=== PATIENT | male | born 1940 | race Caucasian/White ===

== ENCOUNTER 2020-01-04 05:44 | Observation (INO) | payer MEDICARE, OTHER ==
[2020-01-04 09:20] VITALS: TEMP 97.7
[2020-01-04] MEDS ORDERED: Ondansetron PF 4 MG/2 ML Vial IVP PRN (09:24)
[2020-01-04] MEDS ORDERED: Senokot S 8.6-50 MG TAB PO PRN (09:24)
[2020-01-04] MEDS ORDERED: Guaifenesin DM 100-10/5 ML UDCUP PO PRN (09:24)
[2020-01-04] MEDS ORDERED: Acetaminophen 325 MG TAB PO PRN (09:24)
[2020-01-04] MEDS ORDERED: Bisacodyl 10 MG SUPP PR PRN (09:24)
[2020-01-04] MEDS ORDERED: Calcium Carbonate 500 MG ChewTAB PO PRN (09:24)
[2020-01-04 09:34] VITALS: BMI 26.4
--- NOTE | 2020-01-04 12:09 | MRI ---
MRI BRAIN WITH AND WITHOUT CONTRAST: INDICATION: Exam is performed as followup to a CT scan of 01/03/2010. A hypointensity in the left frontal lobe wa s questioned on that study. FINDINGS: Mild cortical volume loss. Moderate chronic ischemic white matter change. No evidence of restricted diffusion. There is no evidence of left frontal lobe mass. The questioned lucency seen on recent CT is secondar y to volume averaging. There is no abnormal enhancement. Intracranial internal carotid arteries and cerebral arteries show expected flow voids. Paranasal sin uses appear clear with mild mucosal edema in the periphery of the right maxillary antrum. IMPRESSION: 1. Mild chronic ischemic white matter change. 2. No acute process. No evidence of frontal lobe mass. The area of lucency seen on recent CT appea rs to be secondary to volume averaging. POS: AH
[2020-01-04] MEDS ORDERED: Magnevist 469MG/ML 20 ML VIAL ONE (13:57)
[2020-01-04 14:39] VITALS: BP 146/85
--- NOTE | 2020-01-04 15:00 | HP ---
REASON FOR ADMISSION: TIA. HISTORY OF PRESENTING ILLNESS: The patient gives history of difficulty speaking around 8:00 p.m. yesterday. Especially any word with syllables, S and T was hard to come out. The patient managed to go to bed. Around 01:45 a.m., he woke up and was disoriented. His right hand was not working as it should and the patient states that he was forcing to make it work. He has also had numbness on right half of his face. The patient's speech was more dysarthric, and he had trouble to balance as well. His is a nurse, who in fact gave him five tablets of aspirin and called EMS and was brought to emergency room. An hour into taking aspirin, the patient 's symptoms completely resolved. He currently has no complaints of chest pain, palpitations, PND, or orthopnea. No complaints of fever or COVID symptoms. He has never had a stroke before. The patient is a right-handed person. PAST MEDICAL AND SURGICAL HISTORY: Hypertension, TURP, two kidney stones removed in the past, and left nasal polyp removed. CURRENT MEDICATIONS: Amlodipine 5 mg p.o. daily. ALLERGIES: HE IS INTOLERANT TO LISINOPRIL, WHICH CAUSES COUGH AND HIS TOES WILL GO NUMB. PERSONAL HISTORY: Does not abuse alcohol or drugs. No history of smoking. FAMILY HISTORY: Mother is still alive. She is 99 years old. She has hypothyroidism and chronic hypotension. Father at the age of 73, has had history of cardiomegaly. CODE STATUS: Full. REVIEW OF SYSTEMS: CONSTITUTIONAL: Negative for weight loss or gain, ability to conduct usual activities. SKIN: Negative for rash, itching. EYES: Negative for double vision, pain. ENT/MOUTH: Negative for nose bleeding, neck stiffness, pain, tenderness. CARDIOVASCULAR: Negative for palpitations, dyspnea on exertion, orthopnea. RESPIRATORY: Negative for shortness of breath, wheezing, cough, hemoptysis, fever or night sweats. GASTROINTESTINAL: Negative for poor appetite, abdominal pain, heartburn, nausea , vomiting, constipation, or diarrhea. GENITOURINARY: Negative for urgency, frequency, dysuria, nocturia. MUSCULOSKELETAL: Negative for pain, swelling. NEUROLOGIC/PSYCHIATRIC: Negative for anxiety, depression. ALLERGY/IMMUNOLOGIC: Negative for skin rash, bleeding tendency. PHYSICAL EXAMINATION: GENERAL: The patient is a 79-year-old male, who is currently not in any acute distress. VITAL SIGNS: Blood pressure 135/84, pulse 80 per minute, respiratory rate 16 per minute, temperature 97.7 degrees Fahrenheit, and saturating 98% on room air. NECK: Supple. No elevated JVD. HEENT: Eyes; extraocular muscles are intact. Pupils are reacting to light. Oral cavity, mucous membranes are moist. No exudates or congestion. CARDIOVASCULAR: S1 and S2 heard, regular rhythm. RESPIRATORY: Air entry 1+ bilateral. No rales or rhonchi. ABDOMEN: Soft. Bowel sounds heard. No tenderness, rigidity, or guarding. EXTREMITIES: No peripheral edema or calf tenderness. VASCULAR: Peripheral pulses 2+ bilateral. No ischemic ulcerations or gangrene. CENTRAL NERVOUS SYSTEM: No gross focal motor deficits noted. The patient is alert, awake, and oriented well. PSYCHIATRIC: The patient's mood is euthymic. No hallucinations or delusions. DIAGNOSTIC DATA: A CT angio brain has not revealed any abnormality. CT brain without contrast done on admission showed mild diffuse chronic ischemic change. There was focal asymmetry in the left frontal region at the anterior aspect of the left sylvian fissure. MRI brain with and without contrast done, shows mild chronic ischemic white matter change. There is no evidence of frontal lobe mass. The area of lucency seen on this CAT scan appears to be secondary to volume averaging. Electrolytes stable. BUN 20, creatinine 0.9, serum glucose 120, and total bilirubin 2.0. LFTs were within normal limits. Troponin x1 negative. Albumin 4.3. PT, INR, and PTT within normal limits. White count of 9, hemoglobin and hematocrit of 15 and 45, platelet count 233, MCV is 90 with 59% neutrophils. EKG done, shows normal sinus rhythm at 80 beats per minute. There is likely chronic LBBB. QRS duration is 150 milliseconds. Corrected QT is 500 milliseconds. CLINICAL IMPRESSION AND PLAN: The patient will likely be discharged home. He initially came with symptoms of transient ischemic attack with right-sided weakness. Initial CAT scan was suspicious for possible left frontal lobe area mass. MRI with and without contrast done shows no evidence of mass. There is no acute infarct or bleed. His COVID-19 PCR is pending. He is hemodynamically stable and neurologically stable with no deficits at present. He is currently on aspirin, Norvasc, and Lipitor and will continue these three on discharge. Echo with 2D Doppler has been ordered and we will wait for it to be done prior to discharge. I will speak to his , Ms. King Barnes prior to discharging him. Neurology consultation with Dr. Adler is also pending at the time of this dictation. We will likely wait for those prior to discharging him home. Please note this is a same day observation admit and discharge note. Job ID: [id number]
[2020-01-04 18:03] LABS: SARS-CoV-2 MS2 Positive; SARS-CoV-2 N Gene Negative; SARS-CoV-2 S Gene Negative; SARS-CoV-2 by NAA Not Detected (NotDetected); SARS-CoV-2 orf1ab Negative
[2020-01-04] MEDS ORDERED: Famotidine 20 MG TAB PO SCH (21:00)
[2020-01-04] MEDS ORDERED: Amlodipine 5 MG TAB PO SCH (21:00)
[2020-01-04] MEDS ORDERED: Atorvastatin Calcium 40 MG TAB PO SCH (21:00)
[2020-01-05] MEDS ORDERED: Aspirin 325 mg Enteric Coated Tablet PO SCH (09:00)
[2020-01-05] MEDS ORDERED: Enoxaparin Sodium 40 MG/0.4 ML SYRINGE SC SCH (09:00)
== END 2020-01-04 16:03 | disposition home or self-care (01) ==
LOC: ERS 05:44 → 2SE 07:17 → INTOOBSV 07:17
PROVIDERS: ADMIT Internal Medicine; ATTEND Internal Medicine
DX: R47.1 Dysarthria and anarthria (principal); R20.0 Anesthesia of skin; R41.0 Disorientation, unspecified; R53.1 Weakness; I10 Essential (primary) hypertension; Z79.899 Other long term (current) drug therapy; Z88.8 Allergy status to other drugs, medicaments and biological substances; Z20.828 Contact with and (suspected) exposure to other viral communicable diseases
CPT/HCPCS: 70553; 97139 ×3; 99285; U0003; 87635; A9579